=== PATIENT | male | born 1950 | race Caucasian/White ===

== ENCOUNTER 2019-04-17 05:20 | Inpatient (IN) | payer BC, MEDICARE ==
[2019-04-17] MEDS ORDERED: Sodium Chloride 0.9% 1,000 ML IV ONE ×2 (05:30→05:53)
[2019-04-17] MEDS ORDERED: Albuterol/Ipratropium 3.0-0.5 MG/3 ML Neb Soln NEB ONE (05:33)
--- NOTE | 2019-04-17 05:34 | EDM.PDOC ---
ED HPI GENERAL MEDICAL PROBLEM - General Stated Complaint: AMB Time Seen by Provider: 04/17/19 05:29 - History of Present Illness INITIAL COMMENTS - FREE TEXT/NARRATIVE: HISTORY AND PHYSICAL: History of present illness: Patient is a 69-year-old white male with history of chronic obstructive pulmonary disease chronic hyponatremia cachexia hypertension compression fracture of thoracic vertebrae chronic back pain was a smoker who presents by ambulance mottled hypotensive with severe dyspnea. Patient states that he is DNR refusing intubation we are awaiting arrival of his . Patient denies chest pain Review of systems: As per history of present illness and below otherwise all systems reviewed and negative. Past medical history: As per history of present illness and as reviewed below otherwise noncontributory. Surgical history: As per history of present illness and as reviewed below otherwise noncontributory. Social history: No reported history of drug or alcohol abuse. Family history: As per history of present illness and as reviewed below otherwise noncontributory. Physical exam: HEENT: Atraumatic, normocephalic, trachea midline patient mottled clammy Lungs: Markedly diminished course breath sounds equal bilaterally, chest nontender. Heart: S1S2, regular, negative for clicks, rubs, or JVD. Abdomen: Soft, nondistended, nontender. Negative for masses or hepatosplenomegaly. Negative for costovertebral tenderness. Pelvis: Stable nontender. Genitourinary: Deferred. Rectal: Deferred. Extremities: Atraumatic, negative for cords or calf pain. Neurovascular unremarkable. Neuro: Awake, moves extremities follows commands somnolent limited grossly nonfocal exam. Diagnostics: CBC CMP troponin PT/INR chest x-ray EKG lactic acid blood culture 2 UA urine culture ABG Therapeutics: IV O2 monitor BiPAP Impression: #1 COPD #2 respiratory failure #3 DNR Definitive disposition and diagnosis as appropriate pending reevaluation and review of above. - Related Data Allergies Allergy/AdvReac Type Severity Reaction Status Date / Time No Known Allergies Allergy Verified 04/17/19 06:05 Home Meds: Home Meds Alendronate Sodium 70 mg PO WEEKLY 04/17/19 [History] Losartan [Cozaar] 50 mg PO DAILY 04/17/19 [History] amLODIPine [Norvasc] 5 mg PO DAILY 04/17/19 [History] ED ROS GENERAL - Review of Systems Review Of Systems: ROS reveals no pertinent complaints other than HPI. ED EXAM, GENERAL - Physical Exam Exam: See Below (See dictation) Course - Vital Signs Last Recorded V/S: Last Vital Signs Temp 35.9 C 04/17/19 06:07 Pulse 99 04/17/19 06:16 Resp 40 H 04/17/19 06:26 BP 139/72 04/17/19 06:26 Pulse Ox 83 L 04/17/19 06:26 - Orders/Labs/Meds Orders: Active Orders 24 hr Category Date Time Status Patient Status [ADT] Stat ADT 04/17/19 06:56 Active Cardiac Monitoring [RC] . DIRECTED Care 04/17/19 05:30 Active EKG Documentation Completion [RC] STAT Care 04/17/19 05:30 Active Robreson Catheter Insertion [Insert Urinary Catheter] [OM. Care 04/17/19 06:30 Ordered PC] Q24H Pulse Oximetry [RC] ASDIRECTED Care 04/17/19 05:30 Active RT Aerosol Therapy [RC] ASDIRECTED Care 04/17/19 05:33 Active RT BiPAP/CPAP [RC] ASDIRECTED Care 04/17/19 05:34 Active Urinary Catheter Assessment [RC] ASDIRECTED Care 04/17/19 06:24 Active CULTURE BLOOD [BC] Stat Lab 04/17/19 05:35 Received CULTURE BLOOD [BC] Stat Lab 04/17/19 06:00 Results UA RFX SARTHAK AND CULT IF INDIC [URIN] Stat Lab 04/17/19 05:30 Ordered Levofloxacin/Dextrose 5%-Water [Levaquin in D5W 750 MG/ Med 04/17/19 05:53 Active 150 ML] 750 mg Premix Bag 1 bag IV ONETIME Sodium Chloride 0.9% [Normal Saline] 1,000 ml Med 04/17/19 07:00 Active IV ASDIRECTED Blood Culture x2 Reflex Set [OM.PC] Stat Oth 04/17/19 05:32 Ordered Saline Lock Insert [OM.PC] Stat Oth 04/17/19 05:30 Ordered Medication Orders Levofloxacin/Dextrose 750 mg/ (Premix) 150 mls @ 100 mls/hr IV ONETIME ONE Stop: 04/17/19 07:22 Last Admin: 04/17/19 06:00 Dose: 100 mls/hr Sodium Chloride (Normal Saline) 1,000 mls @ 125 mls/hr IV ASDIRECTED [facility] Labs: Laboratory Tests 04/17/19 04/17/19 04/17/19 Range/Units 05:15 05:15 05:15 WBC 12.99 H (4.0-11.0) K/uL RBC 4.45 L (4.50-5.90) M/uL Hgb 14.5 (13.0-17.0) g/dL Hct 40.7 (38.0-50.0) % MCV 91.5 (80.0-98.0) fL MCH 32.6 H (27.0-32.0) pg MCHC 35.6 (31.0-37.0) g/dL RDW Std Deviation 44.6 (28.0-62.0) fl RDW Coeff of Bernardo 14 (11.0-15.0) % Plt Count 215 (150-400) K/uL MPV 10.50 (7.40-12.00) fL Add Manual Diff YES Neutrophils % (Manual) 36 L (48.0-80.0) % Band Neutrophils % 48 % Lymphocytes % (Manual) 14 L (16.0-40.0) % Monocytes % (Manual) 2 (0.0-15.0) % Nucleated RBC % 0.0 /100WBC Absolute Seg Neuts 4.7 (1.4-5.7) Band Neutrophils # 6.2 Lymphocytes # (Manual) 1.8 (0.6-2.4) Monocytes # (Manual) 0.3 (0.0-0.8) Nucleated RBCs # 0 K/uL INR 0.95 ABG pH (7.35-7.45) ABG pCO2 (35-45) mmHG ABG pO2 (75-100) mmHG ABG HCO3 (22-26) mEq/L ABG Total CO2 ABG Base Excess (-2.0-2.0) Lactate (0.20-2.00) mmol/L Sodium 130 L (136-148) mmol/L Potassium 3.9 (3.5-5.1) mmol/L Chloride 93 L (98-107) mmol/L Carbon Dioxide 18.7 L (21.0-32.0) mmol/L BUN 48 H (7.0-18.0) mg/dL Creatinine 1.8 H (0.8-1.3) mg/dL Est Cr Clr Drug Dosing TNP Estimated GFR (MDRD) 37.4 ml/min Glucose 133 H (74-106) mg/dL Calcium 9.0 (8.5-10.1) mg/dL Total Bilirubin 0.4 (0.2-1.0) mg/dL AST 32 (15-37) IU/L ALT 22 (14-63) IU/L Alkaline Phosphatase 81 (46-116) U/L Troponin I < 0.050 (0.000-0.056) ng/mL B-Natriuretic Peptide (<100) PG/ML Total Protein 6.6 (6.4-8.2) g/dL Albumin 2.3 L (3.4-5.0) g/dL Globulin 4.3 H (2.6-4.0) g/dL Albumin/Globulin Ratio 0.5 L (0.9-1.6) 04/17/19 04/17/19 04/17/19 Range/Units 05:15 05:15 05:57 WBC (4.0-11.0) K/uL RBC (4.50-5.90) M/uL Hgb (13.0-17.0) g/dL Hct (38.0-50.0) % MCV (80.0-98.0) fL MCH (27.0-32.0) pg MCHC (31.0-37.0) g/dL RDW Std Deviation (28.0-62.0) fl RDW Coeff of Bernardo (11.0-15.0) % Plt Count (150-400) K/uL MPV (7.40-12.00) fL Add Manual Diff Neutrophils % (Manual) (48.0-80.0) % Band Neutrophils % % Lymphocytes % (Manual) (16.0-40.0) % Monocytes % (Manual) (0.0-15.0) % Nucleated RBC % /100WBC Absolute Seg Neuts (1.4-5.7) Band Neutrophils # Lymphocytes # (Manual) (0.6-2.4) Monocytes # (Manual) (0.0-0.8) Nucleated RBCs # K/uL INR ABG pH 7.042 L* (7.35-7.45) ABG pCO2 70 H (35-45) mmHG ABG pO2 146 H (75-100) mmHG ABG HCO3 19 L (22-26) mEq/L ABG Total CO2 18.7 ABG Base Excess -12.5 L (-2.0-2.0) Lactate 4.0 H (0.20-2.00) mmol/L Sodium (136-148) mmol/L Potassium (3.5-5.1) mmol/L Chloride (98-107) mmol/L Carbon Dioxide (21.0-32.0) mmol/L BUN (7.0-18.0) mg/dL Creatinine (0.8-1.3) mg/dL Est Cr Clr Drug Dosing Estimated GFR (MDRD) ml/min Glucose (74-106) mg/dL Calcium (8.5-10.1) mg/dL Total Bilirubin (0.2-1.0) mg/dL AST (15-37) IU/L ALT (14-63) IU/L Alkaline Phosphatase (46-116) U/L Troponin I (0.000-0.056) ng/mL B-Natriuretic Peptide 188 H (<100) PG/ML Total Protein (6.4-8.2) g/dL Albumin (3.4-5.0) g/dL Globulin (2.6-4.0) g/dL Albumin/Globulin Ratio (0.9-1.6) Meds: Medications Generic Name Dose Route Start Last Admin Trade Name Freq PRN Reason Stop Dose Admin Levofloxacin/Dextrose 750 mg/ 150 mls @ 100 mls/hr 04/17/19 05:53 04/17/19 06 :00 Premix IV 04/17/19 07:22 100 mls/hr ONETIME ONE Administration Sodium Chloride 1,000 mls @ 125 mls/hr 04/17/19 07:00 Normal Saline IV ASDIRECTED SAEED Discontinued Medications Generic Name Dose Route Start Last Admin Trade Name Freq PRN Reason Stop Dose Admin Albuterol/Ipratropium 3 ml 04/17/19 05:33 04/17/19 06:01 Duoneb 3.0-0.5 Mg/3 Ml NEB 04/17/19 05:34 3 ml ONETIME ONE Administration Sodium Chloride 1,000 mls @ 999 mls/hr 04/17/19 05:30 04/17/19 06:01 Normal Saline IV 04/17/19 06:30 999 mls/hr BOLUS ONE Administration Piperacillin Sod/Tazobactam 50 mls @ 100 mls/hr 04/17/19 05:41 04/17/19 05:59 Sod 3.375 gm/ Sodium Chloride IV 04/17/19 06:10 100 mls/hr ONETIME ONE Administration Sodium Chloride 1,000 mls @ 999 mls/hr 04/17/19 05:53 04/17/19 06:01 Normal Saline IV 04/17/19 06:53 999 mls/hr .Bolus ONE Administration Methylprednisolone Sodium Succinate 125 mg 04/17/19 05:41 04/17/19 05:59 Solu-Medrol IVPUSH 04/17/19 05:42 125 mg ONETIME ONE Administration Departure - Departure Time of Disposition: 06:59 Disposition: Admitted As Inpatient 64 Condition: Critical Clinical Impression: Sepsis, DNR (do not resuscitate), COPD (chronic obstructive pulmonary disease) , Respiratory failure, Pneumonia - Discharge Information - My Orders Last 24 Hours: My Active Orders 04/17/19 05:30 Cardiac Monitoring [RC] . DIRECTED EKG Documentation Completion [RC] STAT Pulse Oximetry [RC] ASDIRECTED UA RFX SARTHAK AND CULT IF INDIC [URIN] Stat Saline Lock Insert [OM.PC] Stat 04/17/19 05:32 Blood Culture x2 Reflex Set [OM.PC] Stat 04/17/19 05:33 RT Aerosol Therapy [RC] ASDIRECTED 04/17/19 05:34 RT BiPAP/CPAP [RC] ASDIRECTED 04/17/19 05:35 CULTURE BLOOD [BC] Stat 04/17/19 05:53 Levofloxacin/Dextrose 5%-Water [Levaquin in D5W 750 MG/150 ML] 750 mg Premix Bag 1 bag IV ONETIME 04/17/19 06:00 CULTURE BLOOD [BC] Stat 04/17/19 06:24 Urinary Catheter Assessment [RC] ASDIRECTED 04/17/19 06:30 Roberson Catheter Insertion [Insert Urinary Catheter] [OM.PC] Q24H 04/17/19 06:56 Patient Status [ADT] Stat 04/17/19 07:00 Sodium Chloride 0.9% [Normal Saline] 1,000 ml IV ASDIRECTED - Assessment/Plan Last 24 Hours: My Active Orders 04/17/19 05:30 Cardiac Monitoring [RC] . DIRECTED EKG Documentation Completion [RC] STAT Pulse Oximetry [RC] ASDIRECTED UA RFX SARTHAK AND CULT IF INDIC [URIN] Stat Saline Lock Insert [OM.PC] Stat 04/17/19 05:32 Blood Culture x2 Reflex Set [OM.PC] Stat 04/17/19 05:33 RT Aerosol Therapy [RC] ASDIRECTED 04/17/19 05:34 RT BiPAP/CPAP [RC] ASDIRECTED 04/17/19 05:35 CULTURE BLOOD [BC] Stat 04/17/19 05:53 Levofloxacin/Dextrose 5%-Water [Levaquin in D5W 750 MG/150 ML] 750 mg Premix Bag 1 bag IV ONETIME 04/17/19 06:00 CULTURE BLOOD [BC] Stat 04/17/19 06:24 Urinary Catheter Assessment [RC] ASDIRECTED 04/17/19 06:30 Roberson Catheter Insertion [Insert Urinary Catheter] [OM.PC] Q24H 04/17/19 06:56 Patient Status [ADT] Stat 04/17/19 07:00 Sodium Chloride 0.9% [Normal Saline] 1,000 ml IV ASDIRECTED
[2019-04-17] MEDS ORDERED: Piperacillin/Tazobactam 3.375 GM in Sodium Chloride 0.9% 50 ML IV ONE (05:41)
[2019-04-17] MEDS ORDERED: methylPREDNISolone Sodium Succinate 125 MG/2 ML SDV IVPUSH ONE (05:41)
--- NOTE | 2019-04-17 05:52 | CR ---
INDICATION: Dyspnea TECHNIQUE: Chest radiograph 1 view COMPARISON: 09/07/2018 FINDINGS: Mediastinum: The mediastinum is normal in appearance. The heart silhouette is normal in size and morphology. Lung: New consolidation is present within the right lung base, and mild airspace infiltrates in the left lung base seen likely due to aspiration pneumonia. Underlying hyperinflation from pulmonary emphysema is noted without significant interval change. No sign of pleural effusion seen. No pneumothorax is identified. IMPRESSION: 1. New consolidation is present within the right lung base, and mild airspace infiltrates in the left lung base seen, likely due to aspiration pneumonia. Dictated by Nic Kinsey MD @ 04/17/2019 5:51:13 AM Dictated by: Nic Kinsey MD @ 04/17/2019 05:51:15 (Electronically Signed)
[2019-04-17] MEDS ORDERED: Levofloxacin/Dextrose 5%-Water 750 MG in Premix Bag 1 BAG IV ONE (05:53)
[2019-04-17 06:04] LABS: CHLORIDE,CL 93 mmol/L (98-107); SODIUM,NA 130 mmol/L (136-148)
[2019-04-17] MEDS ORDERED: Sodium Chloride 0.9% 1,000 ML IV SCH (07:00)
[2019-04-17] MEDS ORDERED: Albuterol/Ipratropium 3.0-0.5 MG/3 ML Neb Soln NEB PRN (07:15)
[2019-04-17] MEDS ORDERED: LORazepam 2 MG/ML SDV IVPUSH PRN (07:17)
--- NOTE | 2019-04-17 07:26 | PCM.HP ---
H&P History of Present Illness - General Date of Service: 04/17/19 Admit Problem/Dx: Admission Diagnosis/Problem Admission Diagnosis/Problem Sepsis - History of Present Illness Initial Comments - Free Text/Narative: 69 yo male with past medical history of COPD, HTN, and alcoholism who presented to the ED with acute respiratory distress. According to family patient was in usually state of health last night but this morning woke up stating he need to go to the hospital. He was short of breath and feverish. He was alert at home and brought to the ED by EMS. In the ED he was lethargic, tachypnic and hypotensive. He was placed on BIPAP. He was given solumedrol, levaquin and zosyn. Chest x-ray showed right lung consolidation. Family reports he drinks ten beers a day. He did not take his antihypertensive medications yesterday or today. no pain Pain Score (Numeric/FACES): 0 - Related Data Allergies/Adverse Reactions: Allergies Allergy/AdvReac Type Severity Reaction Status Date / Time No Known Allergies Allergy Verified 04/17/19 06:05 Home Medications: Home Meds Alendronate Sodium 70 mg PO WEEKLY 04/17/19 [History] Losartan [Cozaar] 50 mg PO DAILY 04/17/19 [History] amLODIPine [Norvasc] 5 mg PO DAILY 04/17/19 [History] Past Medical History Cardiovascular History: Reports: Hypertension Respiratory History: Reports: COPD Genitourinary History: Reports: Other (See Below) Other Genitourinary History: Chronic hyponatremia Musculoskeletal History: Reports: Back Pain, Chronic, Osteoporosis, Other (See Below) Other Musculoskeletal History: Degenerative disc disease Neurological History: Reports: None Psychiatric History: Reports: None Endocrine/Metabolic History: Reports: None Hematologic History: Reports: None Oncologic (Cancer) History: Reports: None Dermatologic History: Reports: None - Past Surgical History Head Surgeries/Procedures: Reports: None Social & Family History - Family History Family Medical History: Noncontributory - Tobacco Use Packs/Tins Daily: 1 - Recreational Drug Use Recreational Drug Use: No H&P Review of Systems - Review of Systems: Review Of Systems: Unable To Obtain Exam - Exam Exam: See Below - Vital Signs Vital Signs: Last Vital Signs Temp 35.9 C 04/17/19 06:07 Pulse 99 04/17/19 06:16 Resp 40 H 04/17/19 06:26 BP 139/72 04/17/19 06:26 Pulse Ox 83 L 04/17/19 06:26 Weight: 34.019 kg - Exam General: Severe Distress, Lethargic, Other (cachetic ill appearing) Lungs: Decreased Breath Sounds Cardiovascular: Regular Rate, Regular Rhythm GI/Abdominal Exam: Soft, Non-Tender Extremities: Non-Tender, No Pedal Edema Skin: Warm, Dry, Intact Neurological: No: Focal Deficit - Patient Data Lab Results Last 24 hrs: Laboratory Results - last 24 hr 04/17/19 04/17/19 04/17/19 Range/Units 05:15 05:15 05:15 WBC 12.99 H (4.0-11.0) K/uL RBC 4.45 L (4.50-5.90) M/uL Hgb 14.5 (13.0-17.0) g/dL Hct 40.7 (38.0-50.0) % MCV 91.5 (80.0-98.0) fL MCH 32.6 H (27.0-32.0) pg MCHC 35.6 (31.0-37.0) g/dL RDW Std Deviation 44.6 (28.0-62.0) fl RDW Coeff of Bernardo 14 (11.0-15.0) % Plt Count 215 (150-400) K/uL MPV 10.50 (7.40-12.00) fL Add Manual Diff YES Neutrophils % (Manual) 36 L (48.0-80.0) % Band Neutrophils % 48 % Lymphocytes % (Manual) 14 L (16.0-40.0) % Monocytes % (Manual) 2 (0.0-15.0) % Nucleated RBC % 0.0 /100WBC Absolute Seg Neuts 4.7 (1.4-5.7) Band Neutrophils # 6.2 Lymphocytes # (Manual) 1.8 (0.6-2.4) Monocytes # (Manual) 0.3 (0.0-0.8) Nucleated RBCs # 0 K/uL INR 0.95 ABG pH (7.35-7.45) ABG pCO2 (35-45) mmHG ABG pO2 (75-100) mmHG ABG HCO3 (22-26) mEq/L ABG Total CO2 ABG Base Excess (-2.0-2.0) Lactate (0.20-2.00) mmol/L Sodium 130 L (136-148) mmol/L Potassium 3.9 (3.5-5.1) mmol/L Chloride 93 L (98-107) mmol/L Carbon Dioxide 18.7 L (21.0-32.0) mmol/L BUN 48 H (7.0-18.0) mg/dL Creatinine 1.8 H (0.8-1.3) mg/dL Est Cr Clr Drug Dosing TNP Estimated GFR (MDRD) 37.4 ml/min Glucose 133 H (74-106) mg/dL Calcium 9.0 (8.5-10.1) mg/dL Total Bilirubin 0.4 (0.2-1.0) mg/dL AST 32 (15-37) IU/L ALT 22 (14-63) IU/L Alkaline Phosphatase 81 (46-116) U/L Troponin I < 0.050 (0.000-0.056) ng/mL B-Natriuretic Peptide (<100) PG/ML Total Protein 6.6 (6.4-8.2) g/dL Albumin 2.3 L (3.4-5.0) g/dL Globulin 4.3 H (2.6-4.0) g/dL Albumin/Globulin Ratio 0.5 L (0.9-1.6) 04/17/19 04/17/19 04/17/19 Range/Units 05:15 05:15 05:57 WBC (4.0-11.0) K/uL RBC (4.50-5.90) M/uL Hgb (13.0-17.0) g/dL Hct (38.0-50.0) % MCV (80.0-98.0) fL MCH (27.0-32.0) pg MCHC (31.0-37.0) g/dL RDW Std Deviation (28.0-62.0) fl RDW Coeff of Bernardo (11.0-15.0) % Plt Count (150-400) K/uL MPV (7.40-12.00) fL Add Manual Diff Neutrophils % (Manual) (48.0-80.0) % Band Neutrophils % % Lymphocytes % (Manual) (16.0-40.0) % Monocytes % (Manual) (0.0-15.0) % Nucleated RBC % /100WBC Absolute Seg Neuts (1.4-5.7) Band Neutrophils # Lymphocytes # (Manual) (0.6-2.4) Monocytes # (Manual) (0.0-0.8) Nucleated RBCs # K/uL INR ABG pH 7.042 L* (7.35-7.45) ABG pCO2 70 H (35-45) mmHG ABG pO2 146 H (75-100) mmHG ABG HCO3 19 L (22-26) mEq/L ABG Total CO2 18.7 ABG Base Excess -12.5 L (-2.0-2.0) Lactate 4.0 H (0.20-2.00) mmol/L Sodium (136-148) mmol/L Potassium (3.5-5.1) mmol/L Chloride (98-107) mmol/L Carbon Dioxide (21.0-32.0) mmol/L BUN (7.0-18.0) mg/dL Creatinine (0.8-1.3) mg/dL Est Cr Clr Drug Dosing Estimated GFR (MDRD) ml/min Glucose (74-106) mg/dL Calcium (8.5-10.1) mg/dL Total Bilirubin (0.2-1.0) mg/dL AST (15-37) IU/L ALT (14-63) IU/L Alkaline Phosphatase (46-116) U/L Troponin I (0.000-0.056) ng/mL B-Natriuretic Peptide 188 H (<100) PG/ML Total Protein (6.4-8.2) g/dL Albumin (3.4-5.0) g/dL Globulin (2.6-4.0) g/dL Albumin/Globulin Ratio (0.9-1.6) Result Diagrams: 04/17/19 05:15 04/17/19 05:15 Billy Results Last 24 hrs: Microbiology 04/17/19 06:00 Anaerobic Blood Culture - Final Blood - Venous - Lab Draw Problem List Initiated/Reviewed/Updated: Yes Orders Last 24hrs: Active Orders 24 hr Category Date Time Status Patient Status [ADT] Stat ADT 04/17/19 06:56 Active Cardiac Monitoring [RC] . DIRECTED Care 04/17/19 05:30 Active EKG Documentation Completion [RC] STAT Care 04/17/19 05:30 Active Roberson Catheter Insertion [Insert Urinary Catheter] [OM. Care 04/17/19 06:30 Ordered PC] Q24H Pulse Oximetry [RC] ASDIRECTED Care 04/17/19 05:30 Active RT Aerosol Therapy [RC] ASDIRECTED Care 04/17/19 05:33 Active RT Aerosol Therapy [RC] ASDIRECTED Care 04/17/19 07:16 Ordered RT BiPAP/CPAP [RC] ASDIRECTED Care 04/17/19 05:34 Active Urinary Catheter Assessment [RC] ASDIRECTED Care 04/17/19 06:24 Active CULTURE BLOOD [BC] Stat Lab 04/17/19 05:35 Received CULTURE BLOOD [BC] Stat Lab 04/17/19 06:00 Results LACTIC ACID,WHOLE BLOOD [BG] Q6H Lab 04/17/19 07:18 Ordered LACTIC ACID,WHOLE BLOOD [BG] Q6H Lab 04/17/19 13:18 Ordered LACTIC ACID,WHOLE BLOOD [BG] Q6H Lab 04/17/19 19:18 Ordered LACTIC ACID,WHOLE BLOOD [BG] Q6H Lab 04/18/19 01:18 Ordered LACTIC ACID,WHOLE BLOOD [BG] Q6H Lab 04/18/19 07:18 Ordered UA RFX BILLY AND CULT IF INDIC [URIN] Stat Lab 04/17/19 05:30 Ordered Albuterol/Ipratropium [DuoNeb 3.0-0.5 MG/3 ML] Med 04/17/19 07:15 Ordered 3 ml NEB Q4HRRT PRN Folic Acid Med 04/17/19 09:00 Ordered 1 mg SUBCUT DAILY LORazepam [Ativan] Med 04/17/19 07:17 Ordered See Protocol IVPUSH Q4H PRN Levofloxacin/Dextrose 5%-Water [Levaquin in D5W 750 MG/ Med 04/17/19 05:53 Active 150 ML] 750 mg Premix Bag 1 bag IV ONETIME Levofloxacin/Dextrose 5%-Water [Levaquin in D5W 750 MG/ Med 04/18/19 07:15 Ordered 150 ML] 750 mg Premix Bag 1 bag IV Q24H Piperacillin/Tazobactam [Piperacil-Tazobact] 3.375 gm Med 04/17/19 12:00 Ordered Sodium Chloride 0.9% [Normal Saline] 50 ml IV Q6H Sodium Chloride 0.9% [Normal Saline] 1,000 ml Med 04/17/19 07:00 Active IV ASDIRECTED Thiamine [Vitamin B-1] Med 04/17/19 09:00 Ordered 100 mg IV DAILY methylPREDNISolone Sod Succ [Solu-MEDROL] Med 04/17/19 12:00 Ordered 125 mg IVPUSH Q6H Blood Culture x2 Reflex Set [OM.PC] Stat Ot 04/17/19 05:32 Ordered Saline Lock Insert [OM.PC] Stat Ot 04/17/19 05:30 Ordered Medication Orders Albuterol/Ipratropium (Duoneb 3.0-0.5 Mg/3 Ml) 3 ml NEB Q4HRRT PRN PRN Reason: Wheezing Folic Acid (Folic Acid) 1 mg SUBCUT DAILY SAEED Levofloxacin/Dextrose 750 mg/ (Premix) 150 mls @ 100 mls/hr IV ONETIME ONE Stop: 04/17/19 07:22 Last Admin: 04/17/19 06:00 Dose: 100 mls/hr Sodium Chloride (Normal Saline) 1,000 mls @ 125 mls/hr IV ASDIRECTED SAEED Last Admin: 04/17/19 07:00 Dose: 125 mls/hr Levofloxacin/Dextrose 750 mg/ (Premix) 150 mls @ 100 mls/hr IV Q24H SAEED Piperacillin Sod/Tazobactam (Sod 3.375 gm/ Sodium Chloride) 50 mls @ 100 mls/ hr IV Q6H SAEED Lorazepam (Ativan) 0 mg IVPUSH Q4H PRN; Protocol PRN Reason: Agitation Methylprednisolone Sodium Succinate (Solu-Medrol) 125 mg IVPUSH Q6H SAEED Thiamine HCl (Vitamin B-1) 100 mg IV DAILY SAEED Assessment/Plan Comment:: 69 yo male with past medical history of COPD, alcoholism, severe malnutrition, who was admitted with acute hypoxic, hypercapnic respiratory, sepsis, aspiration pneumonia, and acute kidney injury. Acute respiratory failure: continue support with BIPAP Sepsis: continue fluid resuscitation, trending lactic acid Pneumonia: Zosyn and Levaquin, cultures pending COPD exacerbation: on solumedrol Patient is DNR/DNI, family understands poor prognosis, and will switch to comfort measures if patient's condition worsens.
[2019-04-17] MEDS ORDERED: Heparin Sodium 5,000 Units/ML Vial SUBCUT SCH (07:45)
[2019-04-17] MEDS ORDERED: Pantoprazole 40 MG Vial IV SCH (07:45)
[2019-04-17] MEDS ORDERED: Thiamine 200 MG/2 ML MDV IV SCH (09:00)
[2019-04-17] MEDS ORDERED: Folic Acid 50 MG/10 ML MDV SUBCUT SCH (09:00)
[2019-04-17] MEDS ORDERED: Pantoprazole 40 MG Vial ONE (10:10)
[2019-04-17] MEDS ORDERED: Piperacillin/Tazobactam 3.375 GM in Sodium Chloride 0.9% 50 ML IV SCH (12:00)
[2019-04-17] MEDS ORDERED: methylPREDNISolone Sodium Succinate 125 MG/2 ML SDV IVPUSH SCH (12:00)
--- NOTE | 2019-04-17 17:28 | PCM.DCSUM1 ---
Discharge Summary - Discharge Data Discharge Disposition: Home, Self-Care 01 Condition: Good - Discharge Plan Home Medications: Home Meds Alendronate Sodium 70 mg PO WEEKLY 04/17/19 [History] Losartan [Cozaar] 50 mg PO DAILY 04/17/19 [History] amLODIPine [Norvasc] 5 mg PO DAILY 04/17/19 [History] Referrals: PCP,None [Primary Care Provider] - - Patient Data Vitals - Most Recent: Last Vital Signs Temp 36.5 C 04/17/19 15:00 Pulse 85 04/17/19 15:00 Resp 44 H 04/17/19 15:00 BP 109/64 04/17/19 15:00 Pulse Ox 89 L 04/17/19 15:00 Weight - Most Recent: 43.318 kg Lab Results - Last 24 hrs: Laboratory Results - last 24 hr 04/17/19 04/17/19 04/17/19 Range/Units 05:15 05:15 05:15 WBC 12.99 H (4.0-11.0) K/uL RBC 4.45 L (4.50-5.90) M/uL Hgb 14.5 (13.0-17.0) g/dL Hct 40.7 (38.0-50.0) % MCV 91.5 (80.0-98.0) fL MCH 32.6 H (27.0-32.0) pg MCHC 35.6 (31.0-37.0) g/dL RDW Std Deviation 44.6 (28.0-62.0) fl RDW Coeff of Bernardo 14 (11.0-15.0) % Plt Count 215 (150-400) K/uL MPV 10.50 (7.40-12.00) fL Add Manual Diff YES Neutrophils % (Manual) 36 L (48.0-80.0) % Band Neutrophils % 48 % Lymphocytes % (Manual) 14 L (16.0-40.0) % Monocytes % (Manual) 2 (0.0-15.0) % Nucleated RBC % 0.0 /100WBC Absolute Seg Neuts 4.7 (1.4-5.7) Band Neutrophils # 6.2 Lymphocytes # (Manual) 1.8 (0.6-2.4) Monocytes # (Manual) 0.3 (0.0-0.8) Nucleated RBCs # 0 K/uL INR 0.95 ABG pH (7.35-7.45) ABG pCO2 (35-45) mmHG ABG pO2 (75-100) mmHG ABG HCO3 (22-26) mEq/L ABG Total CO2 ABG Base Excess (-2.0-2.0) Lactate (0.20-2.00) mmol/L Sodium 130 L (136-148) mmol/L Potassium 3.9 (3.5-5.1) mmol/L Chloride 93 L (98-107) mmol/L Carbon Dioxide 18.7 L (21.0-32.0) mmol/L BUN 48 H (7.0-18.0) mg/dL Creatinine 1.8 H (0.8-1.3) mg/dL Est Cr Clr Drug Dosing TNP Estimated GFR (MDRD) 37.4 ml/min Glucose 133 H (74-106) mg/dL Calcium 9.0 (8.5-10.1) mg/dL Total Bilirubin 0.4 (0.2-1.0) mg/dL AST 32 (15-37) IU/L ALT 22 (14-63) IU/L Alkaline Phosphatase 81 (46-116) U/L Troponin I < 0.050 (0.000-0.056) ng/mL B-Natriuretic Peptide (<100) PG/ML Total Protein 6.6 (6.4-8.2) g/dL Albumin 2.3 L (3.4-5.0) g/dL Globulin 4.3 H (2.6-4.0) g/dL Albumin/Globulin Ratio 0.5 L (0.9-1.6) 04/17/19 04/17/19 04/17/19 Range/Units 05:15 05:15 05:57 WBC (4.0-11.0) K/uL RBC (4.50-5.90) M/uL Hgb (13.0-17.0) g/dL Hct (38.0-50.0) % MCV (80.0-98.0) fL MCH (27.0-32.0) pg MCHC (31.0-37.0) g/dL RDW Std Deviation (28.0-62.0) fl RDW Coeff of Bernardo (11.0-15.0) % Plt Count (150-400) K/uL MPV (7.40-12.00) fL Add Manual Diff Neutrophils % (Manual) (48.0-80.0) % Band Neutrophils % % Lymphocytes % (Manual) (16.0-40.0) % Monocytes % (Manual) (0.0-15.0) % Nucleated RBC % /100WBC Absolute Seg Neuts (1.4-5.7) Band Neutrophils # Lymphocytes # (Manual) (0.6-2.4) Monocytes # (Manual) (0.0-0.8) Nucleated RBCs # K/uL INR ABG pH 7.042 L* (7.35-7.45) ABG pCO2 70 H (35-45) mmHG ABG pO2 146 H (75-100) mmHG ABG HCO3 19 L (22-26) mEq/L ABG Total CO2 18.7 ABG Base Excess -12.5 L (-2.0-2.0) Lactate 4.0 H (0.20-2.00) mmol/L Sodium (136-148) mmol/L Potassium (3.5-5.1) mmol/L Chloride (98-107) mmol/L Carbon Dioxide (21.0-32.0) mmol/L BUN (7.0-18.0) mg/dL Creatinine (0.8-1.3) mg/dL Est Cr Clr Drug Dosing Estimated GFR (MDRD) ml/min Glucose (74-106) mg/dL Calcium (8.5-10.1) mg/dL Total Bilirubin (0.2-1.0) mg/dL AST (15-37) IU/L ALT (14-63) IU/L Alkaline Phosphatase (46-116) U/L Troponin I (0.000-0.056) ng/mL B-Natriuretic Peptide 188 H (<100) PG/ML Total Protein (6.4-8.2) g/dL Albumin (3.4-5.0) g/dL Globulin (2.6-4.0) g/dL Albumin/Globulin Ratio (0.9-1.6) 04/17/19 04/17/19 04/17/19 Range/Units 09:36 09:36 15:04 WBC (4.0-11.0) K/uL RBC (4.50-5.90) M/uL Hgb (13.0-17.0) g/dL Hct (38.0-50.0) % MCV (80.0-98.0) fL MCH (27.0-32.0) pg MCHC (31.0-37.0) g/dL RDW Std Deviation (28.0-62.0) fl RDW Coeff of Bernardo (11.0-15.0) % Plt Count (150-400) K/uL MPV (7.40-12.00) fL Add Manual Diff Neutrophils % (Manual) (48.0-80.0) % Band Neutrophils % % Lymphocytes % (Manual) (16.0-40.0) % Monocytes % (Manual) (0.0-15.0) % Nucleated RBC % /100WBC Absolute Seg Neuts (1.4-5.7) Band Neutrophils # Lymphocytes # (Manual) (0.6-2.4) Monocytes # (Manual) (0.0-0.8) Nucleated RBCs # K/uL INR ABG pH (7.35-7.45) ABG pCO2 (35-45) mmHG ABG pO2 (75-100) mmHG ABG HCO3 (22-26) mEq/L ABG Total CO2 ABG Base Excess (-2.0-2.0) Lactate 3.0 H Cancelled 3.1 H (0.20-2.00) mmol/L Sodium (136-148) mmol/L Potassium (3.5-5.1) mmol/L Chloride (98-107) mmol/L Carbon Dioxide (21.0-32.0) mmol/L BUN (7.0-18.0) mg/dL Creatinine (0.8-1.3) mg/dL Est Cr Clr Drug Dosing Estimated GFR (MDRD) ml/min Glucose (74-106) mg/dL Calcium (8.5-10.1) mg/dL Total Bilirubin (0.2-1.0) mg/dL AST (15-37) IU/L ALT (14-63) IU/L Alkaline Phosphatase (46-116) U/L Troponin I (0.000-0.056) ng/mL B-Natriuretic Peptide (<100) PG/ML Total Protein (6.4-8.2) g/dL Albumin (3.4-5.0) g/dL Globulin (2.6-4.0) g/dL Albumin/Globulin Ratio (0.9-1.6) SARTHAK Results - Last 24 hrs: Microbiology 04/17/19 06:00 Anaerobic Blood Culture - Final Blood - Venous - Lab Draw Med Orders - Current: Current Medications Albuterol/Ipratropium (Duoneb 3.0-0.5 Mg/3 Ml) 3 ml NEB Q4HRRT PRN PRN Reason: Wheezing Folic Acid (Folic Acid) 1 mg SUBCUT DAILY [facility] Last Admin: 04/17/19 09:43 Dose: 1 mg Heparin Sodium (Porcine) (Heparin Sodium) 5,000 units SUBCUT Q8H [facility] Last Admin: 04/17/19 09:42 Dose: 5,000 units Sodium Chloride (Normal Saline) 1,000 mls @ 125 mls/hr IV ASDIRECTED [facility] Last Admin: 04/17/19 07:00 Dose: 125 mls/hr Levofloxacin/Dextrose 750 mg/ (Premix) 150 mls @ 100 mls/hr IV Q24H [facility] Piperacillin Sod/Tazobactam (Sod 3.375 gm/ Sodium Chloride) 50 mls @ 100 mls/ hr IV Q6H [facility] Last Admin: 04/17/19 13:44 Dose: 100 mls/hr Lorazepam (Ativan) 0 mg IVPUSH Q4H PRN; Protocol PRN Reason: Agitation Last Admin: 04/17/19 14:35 Dose: 2 mg Methylprednisolone Sodium Succinate (Solu-Medrol) 125 mg IVPUSH Q6H [facility] Last Admin: 04/17/19 13:43 Dose: 125 mg Pantoprazole Sodium (Protonix Iv) 40 mg IV Q24H [facility] Thiamine HCl (Vitamin B-1) 100 mg IV DAILY [facility] Last Admin: 04/17/19 09:43 Dose: 100 mg Discontinued Medications Albuterol/Ipratropium (Duoneb 3.0-0.5 Mg/3 Ml) 3 ml NEB ONETIME ONE Stop: 04/17/19 05:34 Last Admin: 04/17/19 06:01 Dose: 3 ml Sodium Chloride (Normal Saline) 1,000 mls @ 999 mls/hr IV BOLUS ONE Stop: 04/17/19 06:30 Last Admin: 04/17/19 06:01 Dose: 999 mls/hr Piperacillin Sod/Tazobactam (Sod 3.375 gm/ Sodium Chloride) 50 mls @ 100 mls/ hr IV ONETIME ONE Stop: 04/17/19 06:10 Last Admin: 04/17/19 05:59 Dose: 100 mls/hr Levofloxacin/Dextrose 750 mg/ (Premix) 150 mls @ 100 mls/hr IV ONETIME ONE Stop: 04/17/19 07:22 Last Admin: 04/17/19 06:00 Dose: 100 mls/hr Sodium Chloride (Normal Saline) 1,000 mls @ 999 mls/hr IV .Bolus ONE Stop: 04/17/19 06:53 Last Admin: 04/17/19 06:01 Dose: 999 mls/hr Methylprednisolone Sodium Succinate (Solu-Medrol) 125 mg IVPUSH ONETIME ONE Stop: 04/17/19 05:42 Last Admin: 04/17/19 05:59 Dose: 125 mg Pantoprazole Sodium (Protonix Iv) Confirm Administered Dose 40 mg .ROUTE .STK -MED ONE Stop: 04/17/19 10:11 Last Admin: 04/17/19 10:25 Dose: 40 mg
[2019-04-18] MEDS ORDERED: Levofloxacin/Dextrose 5%-Water 750 MG in Premix Bag 1 BAG IV SCH (07:15)
== END 2019-04-17 15:51 | disposition expired | DRG 871 ==
LOC: MW.ED 05:20 → MW.ICU 06:56 → UNDODISIN 15:51
PROVIDERS: ADMIT Internal Medicine; ATTEND Internal Medicine
PROC: 5A09357 Assistance with Respiratory Ventilation, Less than 24 Consecutive Hours, Continuous Positive Airway Pressure (ICD-10-PCS; principal; 2019-04-17)
DX: A41.9 Sepsis, unspecified organism (principal); J96.01 Acute respiratory failure with hypoxia; J96.02 Acute respiratory failure with hypercapnia; J69.0 Pneumonitis due to inhalation of food and vomit; N17.9 Acute kidney failure, unspecified; J44.1 Chronic obstructive pulmonary disease with (acute) exacerbation; I95.9 Hypotension, unspecified; R06.00 Dyspnea, unspecified; J44.9 Chronic obstructive pulmonary disease, unspecified; J18.9 Pneumonia, unspecified organism; M81.0 Age-related osteoporosis without current pathological fracture; Z66 Do not resuscitate; F17.210 Nicotine dependence, cigarettes, uncomplicated; J96.90 Respiratory failure, unspecified, unspecified whether with hypoxia or hypercapnia; I10 Essential (primary) hypertension; E87.1 Hypo-osmolality and hyponatremia; G89.29 Other chronic pain; Z87.891 Personal history of nicotine dependence; R64 Cachexia; M54.9 Dorsalgia, unspecified; Z79.899 Other long term (current) drug therapy; J44.0 Chronic obstructive pulmonary disease with (acute) lower respiratory infection
CPT/HCPCS: 36415; 36600; 71045; 80053; 82803; 83605; 83880; 84484; 85025; 85610; 87040 ×2; 93005; 94640; 94660; 96361; 96365 ×2; 96375; 99285; A4217; J1956; J2543; J2930; J7040 ×2; J7050; C9113; J1644; J2060; J3411; J7620-GY